=== PATIENT | female | born 1995 | race Caucasian/White ===

== ENCOUNTER → 2024-09-03 | Outpatient (CLI) | payer BC | END | disposition home or self-care (01) | LOC: LABWHC1 11:30 | PROVIDERS: ATTEND Obstetrics & Gynecology | DX: Z34.01 Encounter for supervision of normal first pregnancy, first trimester (principal) | CPT/HCPCS: 36415; 84702 ==

== ENCOUNTER → 2024-09-06 | Outpatient (CLI) | payer BC | END | disposition home or self-care (01) | LOC: LABWHC1 11:46 | PROVIDERS: ATTEND Obstetrics & Gynecology | DX: Z34.01 Encounter for supervision of normal first pregnancy, first trimester (principal) | CPT/HCPCS: 36415; 84702 ==

== ENCOUNTER → 2024-09-13 | Outpatient (CLI) | payer BC | END | disposition home or self-care (01) | LOC: LABWHC1 11:31 | PROVIDERS: ATTEND Obstetrics & Gynecology | CPT/HCPCS: 36415; 84702 ==